=== PATIENT | female | born 1995 | race Asian ===

== ENCOUNTER 2017-08-07 17:47 | Emergency (ER) | payer OTHER ==
--- NOTE | 2017-08-07 18:41 | RAD ---
HISTORY: Left foot injury COMPARISONS: None VIEWS: 3, Frontal, lateral, and oblique views of the left foot FINDINGS: BONE DENSITY: Normal. BONES: There is an elevated fracture of the distal fourth metatarsal. There are nondisplaced fractures of the second and third metatarsals. JOINTS: There is no arthropathy. ALIGNMENT: There is no dislocation. SOFT TISSUES: Unremarkable. OTHER FINDINGS: None. IMPRESSION: ANGULATED FRACTURE OF THE DISTAL FOURTH METATARSAL, WITH NONDISPLACED FRACTURES OF THE SECOND AND THIRD METATARSALS.
[2017-08-07] MEDS ORDERED: oxyCODONE TAB* 5 MG TAB PO ONE (22:15)
--- NOTE | 2017-08-07 22:19 | ED ---
Lower Extremity - HPI Summary HPI Summary: Complains of left foot pain and swelling as/P jumping down from a six-foot wall. Denies head injury, LOC, vision change, HASSAN, N/V, neck pain, back pain, pain or trauma to any other area other than left foot. Denies loss of sensation distally in the foot. - History of Current Complaint Chief Complaint: EDExtremityLower Stated Complaint: LT FOOT INJURY Time Seen by Provider: 08/07/17 19:46 Hx Obtained From: Patient Mechanism Of Injury: Fall From Height Of: Onset of Pain: Immediate Onset/Duration: Hours Severity Initially: Moderate Severity Currently: Moderate Pain Intensity: 8 Pain Scale Used: 0-10 Numeric Timing: Constant Location: Is Discrete @ Character Of Pain: Throbbing Associated Signs And Symptoms: Positive: Swelling, Bruising Aggravating Factor(s): Standing, Ambulation, Movement, Weight Bearing Alleviating Factor(s): Rest Able to Bear Weight: No - Risk Factors Gout Risk Factors: Negative DVT Risk Factors: Negative Septic Arthritis Risk Factor: Negative - Allergies/Home Medications Allergies/Adverse Reactions: Allergies Allergy/AdvReac Type Severity Reaction Status Date / Time No Known Allergies Allergy Verified 08/07/17 17:49 PMH/Surg Hx/FS Hx/Imm Hx - Immunization History Immunizations Up to Date: Yes Infectious Disease History: No Infectious Disease History: Denies: Traveled Outside the [place] in Last 30 Days - Social History Alcohol Use: Occasionally Substance Use Type: Reports: None Smoking Status (MU): Never Smoked Tobacco Review of Systems Constitutional: Negative Eyes: Negative ENT: Negative Cardiovascular: Negative Respiratory: Negative Gastrointestinal: Negative Genitourinary: Negative Musculoskeletal: Negative Skin: Negative Neurological: Negative Psychological: Normal All Other Systems Reviewed And Are Negative: Yes Physical Exam - Summary Physical Exam Summary: PMS intact distally on the foot. Full range of motion of left ankle and left knee. Ecchymosis and swelling on the dorsal aspect of the midfoot. No pain with flexion or extension of left knee, left hip. Triage Information Reviewed: Yes Vital Signs On Initial Exam: Initial Vitals Temp Pulse Resp BP Pulse Ox 98.2 F 108 14 110/74 98 08/07/17 17:49 08/07/17 17:49 08/07/17 17:49 08/07/17 17:49 08/07/17 17:49 Vital Signs Reviewed: Yes Appearance: Positive: Well-Appearing Skin: Positive: Warm Head/Face: Positive: Normal Head/Face Inspection Eyes: Positive: Normal Neck: Positive: Supple Respiratory/Lung Sounds: Positive: Clear to Auscultation Cardiovascular: Positive: Normal Abdomen Description: Positive: Nontender Musculoskeletal: Positive: Normal Neurological: Positive: Normal Psychiatric: Positive: Normal AVPU Assessment: Alert - Rogelio Coma Scale Best Eye Response: 4 - Spontaneous Best Motor Response: 6 - Obeys Commands Best Verbal Response: 5 - Oriented Coma Scale Total: 15 Procedures - Splinting Location: left ankle Hand-Made Type: orthoglass Splint: posterior walking Pre-Proc Neuro Vasc Exam: normal Post-Proc Neuro Vasc Exam: normal Diagnostics - Vital Signs Vital Signs Temp Pulse Resp BP Pulse Ox 08/07/17 17:49 98.2 F 108 14 110/74 98 - Laboratory Lab Statement: Any lab studies that have been ordered have been reviewed, and results considered in the medical decision making process. - Radiology left foot Xray Interpretation: Positive (See Comments) - metatarsal fx x 3, one mildly displaced Lower Extremity Course/Dx - Course Course Of Treatment: Non-open fracture Discussed patient with Dr. Echavarria, who recommended heavy padding, posterior walking cast, crutches, follow-up in the clinic tomorrow morning. - Diagnoses Provider Diagnoses: Metatarsal fracture - Physician Notifications Discussed Care Of Patient With: Nova Echavarria Discharge - Sign-Out/Discharge Documenting (check all that apply): Discharge/Admit/Transfer - Discharge Plan Condition: Stable Disposition: HOME Patient Education Materials: Foot Fracture in Adults (ED) Referrals: [facility] - Julio Cesar MOON [Primary Care Provider] - Nova Echavarria MD [Medical Doctor] - Additional Instructions: Follow-up with orthopedics tomorrow morning. Return to the ED for any new or worsening symptoms - Billing Disposition and Condition Condition: STABLE Disposition: HOME
[2017-08-07 23:02] VITALS: BP 129/83
== END 2017-08-07 22:54 | disposition home or self-care (01) ==
LOC: ED 17:47
DX: S92.342A Displaced fracture of fourth metatarsal bone, left foot, initial encounter for closed fracture (principal); W13.8XXA Fall from, out of or through other building or structure, initial encounter; Y92.9 Unspecified place or not applicable
CPT/HCPCS: 99282; A9270-GY